=== PATIENT | male | born 1975 | race Caucasian/White ===

== ENCOUNTER → 2017-01-27 | Outpatient (CLI) | payer BC ==
--- NOTE | 2017-01-27 23:36 | MR ---
EXAMINATION TYPE: MR brain/cspine wo/w DATE OF EXAM: 01/27/2017 COMPARISON: 02/23/2016 HISTORY: MS Follow up TECHNIQUE: Multiplanar, multisequence images of the brain and brainstem is performed without and with IV contras t, utilizing 15 mL intravenous Gadavist . FINDINGS: On the FLAIR images and T2 images there are some nodular foci of abnormal increased signal in the per iventricular white matter involving the parietal and occipital lobes. These measure up to almost 10 m m. Most of the lesions are less than 5 mm. The total number is less than 20. There is no mass effect nor midline shift. There is no sign of intracranial hemorrhage. There is a tiny area of increased sig nal on the FLAIR images in the central medulla. The contrast images show no pathologic enhancement in the cervical spinal cord. I see no pathologic e nhancement of the brain.. The sella turcica appears normal. The cervical vertebra have normal alignment. There is a small posterior disc bulge at C5-6 and C6-7. There is subtle increased signal on the T2 images in the anterior aspect of the cervical spinal cord at C4. There is no evidence of a cervical spinal cord mass. There is a large anterior disc herniation and anterior spur formation at C6-7. IMPRESSION: There is stable anterior disc herniation at C6-7 and small posterior disc bulging at C5-6. Increased signal in the cervical cord at C4-C5 level consistent with demyelinating disease without change. Ther e is increased signal in the cervical cord on the old exam at the C7 level that appears fairly normal on today's exam. Numerous white matter lesions in the parietal and occipital lobes and a small focus in the medulla co nsistent with demyelinating disease without change compared to old exam.
== END | disposition home or self-care (01) ==
LOC: RADMRIMAIN 19:28
PROVIDERS: ATTEND Psychiatry & Neurology Neurology
DX: G37.9 Demyelinating disease of central nervous system, unspecified (principal); G93.9 Disorder of brain, unspecified; M50.221 Other cervical disc displacement at C4-C5 level; R90.82 White matter disease, unspecified
CPT/HCPCS: 70553; 72156; A9581

== ENCOUNTER → 2022-05-10 | Outpatient (CLI) | payer BC ==
[2022-05-10 14:31] LABS: Basophils # (A) 0.03 X 10*3/uL (0.00-0.10); Basophils % (A) 0.4 %; Eosinophils # (A) 0.22 X 10*3/uL (0.04-0.35); Eosinophils % (A) 3.3 %; HCT 41.9 % (39.6-50.0); HGB 14.2 g/dL (13.0-17.0); Immature Grans, Automated 0.3 %; Lymphocytes # (A) 1.49 X 10*3/uL (0.90-5.00); Lymphocytes % (A) 22.3 %; MCH 29.9 pg (27.0-32.0); MCHC 33.9 g/dL (32.0-37.0); MCV 88.2 fL (80.0-97.0); Mean Platelet Volume 10.5 fL (9.5-12.2); Monocytes # (A) 0.74 X 10*3/uL (0.20-1.00); Monocytes % (A) 11.1 %; NRBC Per 100 WBC 0 /100 WBCS (0.0-0.0); Neutrophils # (A) 4.19 X 10*3/uL (1.80-7.70); Neutrophils % (A) 62.6 %; Platelet Count 244 X 10*3/uL (140-440); RBC 4.75 X 10*6/uL (4.40-5.60); RDW 12.6 % (11.5-14.5); WBC 6.69 X 10*3/uL (4.50-10.00)
[2022-05-10 15:08] LABS: Hepatitis A Antibody IgM Nonreactive (Nonreactive); Hepatitis B Core IgM Nonreactive (Nonreactive); Hepatitis B Surface Antigen Nonreactive (Nonreactive); Hepatitis C IgG Antibody Nonreactive (Nonreactive)
[2022-05-10 15:59] LABS: African American GFR (CKD) 123.3 (60.0-200.0); Albumin 4.7 g/dL (3.8-4.9); Albumin/Globulin Ratio 2.24 (1.60-3.17); Anion Gap 10.4 mmol/L (10.00-18.00); BUN/Creat Ratio 23.25 Ratio (12.00-20.00); Blood Urea Nitrogen 18.6 mg/dL (9.0-27.0); Calcium 9.7 mg/dL (8.7-10.3); Carbon Dioxide 26.6 mmol/L (20.0-27.5); Globulin 2.1 g/dL (1.6-3.3); Non-African American GFR(CKD) 106.4 (60.0-200.0); Potassium 4.1 mmol/L (3.5-5.5); Total Bilirubin 0.6 mg/dL (0.30-1.20); Total Protein 6.8 g/dL (6.2-8.2)
== END | disposition home or self-care (01) ==
LOC: LABWHC1 09:33
PROVIDERS: ATTEND Nurse Practitioner Acute Care
DX: E55.9 Vitamin D deficiency, unspecified (principal); G35 Multiple sclerosis; H53.8 Other visual disturbances; E53.9 Vitamin B deficiency, unspecified
CPT/HCPCS: 36415; 80053; 80074; 82306; 82607; 84207; 85025

== ENCOUNTER → 2024-05-31 | Day surgery (SDC) | payer BC ==
[2024-05-28 13:33] VITALS: BMI 49.1
[~2024-05-31] MED LIST: LACTATED RINGERS 1,000 ML IV SCH; PROPOFOL 10 MG/ML 20 ML VIAL IV ONE
[2024-05-31] MEDS: IV FLUID CONTINUATION 1,000 ML IV ONE (12:42)
[2024-05-31 12:52] VITALS: TEMP 98.2
--- NOTE | 2024-05-31 14:08 | P.PCN ---
Date of Procedure: 05/31/24 Procedure(s) Performed: BRIEF HISTORY: Patient is a 49-year-old pleasant white male scheduled for an elective colonoscopy as a part of evaluation of change in bowel habits. PROCEDURE PERFORMED: Colonoscopy. PREOPERATIVE DIAGNOSIS: Change in bowel habits. IV sedation per Anesthesia. PROCEDURE: After informed consent was obtained, the patient, was brought into the endoscopy unit. IV sedation was administered by Anesthesia under continuous monitoring. Digital rectal examination was normal. Initially the Olympus CF-160 flexible video colonoscope was then inserted in the rectum, gradually advanced into the cecum with to cecum difficulty. Careful examination was performed as the scope was gradually being withdrawn. Ileocecal valve and the appendiceal orifice were visualized and appeared normal. Prep was excellent. Mucosa of the cecum, ascending colon, transverse colon, descending colon, sigmoid colon, and rectum appeared normal. Retroflexion was performed in the rectum and small internal hemorrhoid were seen. The patient tolerated the procedure well. IMPRESSION: Normal-appearing colon from rectum to cecum no evidence of colorectal neoplasia. Small internal hemorrhoids. RECOMMENDATIONS: Findings of this examination were discussed with the patient as well as his family.. He was advised to be on high-fiber identifiable supplements on a regular basis. Recommended repeat screening colonoscopy in 10 years.
[2024-05-31 14:29] VITALS: BP 133/84; PULSE 76; RESP 17
== END | disposition home or self-care (01) ==
LOC: ORWHC2ENDO 11:36
PROVIDERS: ATTEND Internal Medicine Gastroenterology
DX: K64.8 Other hemorrhoids (principal); I10 Essential (primary) hypertension; G47.33 Obstructive sleep apnea (adult) (pediatric); G35 Multiple sclerosis; E66.01 Morbid (severe) obesity due to excess calories; Z79.899 Other long term (current) drug therapy
CPT/HCPCS: 45378